=== PATIENT | female | born 1975 | race Caucasian/White ===

== ENCOUNTER 2022-02-09 07:12 | Outpatient (CLI) | payer OTHER | END 2022-02-09 07:18 | disposition home or self-care (01) | LOC: LAB 07:12 | PROVIDERS: ATTEND Obstetrics & Gynecology | DX: Z20.828 Contact with and (suspected) exposure to other viral communicable diseases (principal); Z20.818 Contact with and (suspected) exposure to other bacterial communicable diseases ==

== ENCOUNTER 2023-09-29 05:23 | Day surgery (SDC) | payer OTHER ==
[2023-09-23 11:39] LABS: PH,URINE 5.5 (5.0-8.0); URINE APPEARANCE Clear; URINE BILIRRUBIN Negative (NEGATIVE); URINE BLOOD Trace; URINE COLOR Yellow; URINE GLUCOSE Negative (NEGATIVE); URINE LEUKOCYTE Negative; URINE NITRATE Negative; URINE PROTEIN Negative (NEGATIVE); URINE UROBILINOGEN 0.2 E.U./dl
[2023-09-23 11:41] LABS: URINE BACTERIA 1806.6 uL (0.0-1933); URINE EPITHELIAL CELLS 17.6 uL (0.0-38.8); URINE RBC 12.5 uL (0.0-20.8)
[2023-09-23 11:57] LABS: HEMATOCRIT 39.4 % (36.0-45.00); HEMOGLOBIN 13.1 g/dL (12.0-15.00); MEAN CELL VOLUME 88.1 fL (80.00-100.00); MEAN CORPUSCULAR HEMOGLOBIN 29.4 pg (27.00-32.0); MEAN CORPUSCULAR HGB CONC 33.3 g/dl (32.0-36.0); PLATELET COUNT 277 K/uL (150-450); RED BLOOD COUNT 4.47 M/uL (4.00-6.00); RED CELL DISTRIBUTION WIDTH 13.4 % (11.5-14.5)
[2023-09-23 12:23] LABS: ALBUMIN 3.9 gm/dL (3.4-5.0); BILIRUBIN TOTAL 0.42 mg/dL (0.3-1.2); CALCIUM 9.9 mg/dL (8.5-10.1); CREATININE SERUM 0.76 mg/dL (0.55-1.02); GFR 81.22; GLOBULINA 3.9 G/DL (2.4-3.5); POTASSIUM 4.98 mEq/L (3.5-5.1); TOTAL PROTEIN 7.8 gm/dL (6.4-8.2)
[2023-09-23 12:24] LABS: INR 0.96; PARTIAL THROMBOPLASTIN TIME 30.5 SECONDS (22.0-34.0); PROTHROMBIN TIME 10.1 SECONDS (9.0-11.5)
[~2023-09-29] VITALS: Ht 165.1 cm; Wt 75.7 kg
[2023-09-29] MEDS ORDERED: CEFAZOLIN SODIUM 1,000 MG VIAL ONE (07:01)
[2023-09-29] MEDS ORDERED: POVIDONE-IODINE 118 ML BOTT TOP ONE ×2 (07:06→07:15)
[2023-09-29] MEDS ORDERED: CEFAZOLIN SODIUM 1,000 MG VIAL IV ONE (07:15)
[2023-09-29] MEDS ORDERED: MORGIDOX100 MG PO (09:16)
[2023-09-29] MEDS ORDERED: IBU600 MG PO (09:17)
== END 2023-09-29 14:10 | disposition home or self-care (01) ==
LOC: CIR.AMB 05:23
PROVIDERS: ATTEND Obstetrics & Gynecology
DX: N84.0 Polyp of corpus uteri (principal); N93.8 Other specified abnormal uterine and vaginal bleeding